=== PATIENT | male | born 1965 | race Caucasian/White ===

== ENCOUNTER 2023-09-19 07:39 | Emergency (ER) | payer OTHER, SELFPAY ==
[2023-09-19 07:43] VITALS: BP 152/108
--- NOTE | 2023-09-19 08:15 | ED.GENMED ---
History of Present Illness
General
Chief Complaint: Musculo-Skeletal Complaint
Source: patient
Exam Limitations: none
Time Seen by Provider: 09/19/23 07:52
Nursing documentation reviewed up to this point in time: agreed with
Travel History
Have you had any contact with someone who has COVID-19?: No
Do you have any symptoms of coronavirus? Fever > 100 degrees, chills, cough, shortness of breath, sore throat, loss of taste or smell, muscle aches, or headache?: No
History of Present Illness
History of Present Illness:
pt i a 58 y/o M with h/o hnt
here with atraumatic pain to L heel x 2 days
says he started with the pain when he got out of bed 2 days ago but was able to walk on it throughout the day
yesterday the more he wlaked, the more pain he felt
today he doesn't want to put pressure on it
no swelling, fever, numbness/tingling, skin changes
pt has never had this before
no change to footwear.
took motrin yesterday without relief
Past History
Past History
ED Past Medical History: HTN, Hypercholesterolemia and Other (diverticulitis)
ED Past Surgical History: Orthopedic (carpal tunnel, acl)
Social History
Tobacco: Non-smoker
Alcohol: Occasional
Drug: None
Personal:
Living: with family
Employment: Employed (facility director)
Family History
Family History: CAD
Review of Systems
Review of Systems
Allergies reviewed?: Yes
All Other Systems: Not applicable
Phy Exam
Physical Exam
Physical Exam:
GENERAL: Alert , in no apparent distress, comfortable at rest
HEAD: NCAT
CV: 2+ DP PULSES B/L
NEUROLOGICAL: Alert and oriented, no focal neuro deficits, , 5/5 strength, sensation intact, ambulation slight limp right leg
SKIN: Warm and dry, no rash, no redness
MUSCULOSKELETAL: Normal inspection of the left foot, although there may be a very subtle soft tissue swelling along the heel skin but there is no skin changes. He had no significant tenderness to palpation of the insertion point of the plantar
fascia but he does have pain in that spot when he ambulates. The Achilles is nontender, it is intact, calf is normal, ankle and foot have no bony tenderness
PSYCH: Normal and appropriate interaction.
Course
Orders/Labs/Results
Orders:
Orders
09/19/23 07:50
Heel, Left 2 View [CR Heel/os Calcis - Left 2 Vw*] Urgent
Comment:
Reason For Exam: left heel pain no injury started tuesday
Vital Signs
Initial and Last Documented VS:
Initial Vital Signs
Temp Pulse BP Pulse Ox
98.3 F 89 152/108 98
09/19/23 07:43 09/19/23 07:43 09/19/23 07:43 09/19/23 07:43
Last Documented Vital Signs
Temp Pulse Resp BP Pulse Ox
97.5 F 82 16 140/99 99
09/19/23 08:38 09/19/23 08:38 09/19/23 08:38 09/19/23 08:38 09/19/23 08:38
MDM/Problems Addressed
Differential Diagnosis Includes:
plantar fasciitis, heel spur
MDM/Problems Addressed:
58-year-old male with 2 days of left heel pain atraumatic, worsening in the morning first thing when he puts his foot down. He also has pain throughout the day with weightbearing. He has been using a cane that he had from a family member. He took
Motrin yesterday without relief. On exam the patient does not have significant tenderness and his symptoms painful dorsiflexion of the left foot but otherwise there are no exam findings. He was able to stand but does have discomfort. X-ray was
independently reviewed by me and showed calcaneus heel spurs promoting a diagnosis for plantar fasciitis. Recommended a plantar fascial splint and hard soled shoe, patient was given a postop shoe in the meantime. Referral to Ortho recommended if
symptoms do not improve with NSAIDs
*Critical Care Note
Total Time (30-74mins, 75-104mins- exclusive of procedures): Not Applicable
ED Attending Note
-
Portions of this chart may have been created with voice recognition software.� Occasional wrong word or��sound alike� substitutions may have occurred due to the inherent limitations of voice recognition software.
Discharge Plan
Departure
Patient Disposition: Home (Routine Discharge)
Date of Disposition: 09/19/23
Time of Disposition: 08:29
Patient with high blood pressure during this ER visit?: Yes
Condition: Fair
Discharge Problem:
Heel spur, Plantar fasciitis of left foot
Instructions: Heel Spurs (DC), BLOOD PRESSURE
Prescriptions:
New
naproxen 500 mg tablet
500 mg PO BID PRN (Reason: Pain) 5 Days Qty: 10 0RF
No Action
lisinopril-hydrochlorothiazide 20-12.5 mg tablet
1 tab PO DAILY
Referrals:
Abdon Sanchez DPM [Active] - Follow up in 5-7 days
Stand Alone Forms: Return to Work
Activity Restrictions/Additional Instructions:
Your symptoms are likely due to plantar fasciitis which you are at increased risk for because of bone spurs and calcifications in your heel bone which are degenerative changes due to arthritis. This is a condition that can take some time to heal.
You should try an Naprosyn 500 mg twice a day for 5 days with food
tylenol can also be used 3 times a day as needed
you can ice off and on and elevate your foot and try not to do excessive walking
when you do walk around, you should wear the hard soled shoe or boot. do not walk barefoot
you should buy a splint to wear at night
follow up with orthpedics as needed for continued symptoms
return for : redness, swelling, fever, inability to walk or any concerns
use the cane to help avoid full pressure on your heel for a few days.
Interventions
Interventions:
*Risk Screen - Suicide Last Done: 09/19/23 08:23
*General Assessment Last Done: 09/19/23 08:23
*Neglect/Abuse Screening Last Done: 09/19/23 08:23
ED- Fall Risk Assessment Last Done: 09/19/23 08:23
*ED COVID-19 Vaccine History Last Done: 09/19/23 07:47
*Nursing Disposition Last Done: 09/19/23 08:38
ED-Musculoskeletal Assessment Last Done: 09/19/23 08:23
Discharge Date and Time
Discharge Date/Time: 09/19/23 09:14
[2023-09-19 08:23] VITALS: BMI 27.9
[2023-09-19 08:38] VITALS: BP 140/99
== END 2023-09-19 09:14 | disposition home or self-care (01) ==
LOC: EMR 07:39
PROVIDERS: EMERGENCY PHYSICIAN Emergency Medicine; FAMILY PHYSICIAN Psychiatry & Neurology Neurology
DX: M77.32 Calcaneal spur, left foot (principal); M72.2 Plantar fascial fibromatosis; I10 Essential (primary) hypertension
CPT/HCPCS: 99283; 73650

== ENCOUNTER 2024-10-09 22:10 | Inpatient (IN) | payer OTHER, SELFPAY ==
[2024-10-09 16:07] VITALS: BP 128/90
[2024-10-09 16:35] LABS: Urine Albumin 1+ (Neg - Trace); Urine Bilirubin Negative (Negative); Urine Character Clear (Clear); Urine Color Yellow; Urine Glucose Negative (Negative); Urine Ketone Negative (Negative); Urine Leukocyte 1+ (Negative); Urine Nitrite Negative (Negative); Urine Occult Blood Negative (Negative); Urine Urobilinogen Negative (Neg - 1+); Urine pH 6.5 (5.0-9.0)
[2024-10-09 16:38] LABS: Hematocrit 48.2 % (39.0-52.0); Hemoglobin 15.8 g/dL (13.0-18.0); Mean Corp Hgb Conc. 32.8 g/dL (33.0-37.0); Mean Corpuscular Hgb 29.4 pg (27.0-31.0); Mean Corpuscular Volume 89.8 fL (80.0-94.0); Mean Platelet Volume 10.8 fL (7.4-10.4); Platelet Count 166 10^3/uL (130-400); Red Blood Cell Count 5.37 10^6/uL (4.70-6.10); Red Cell Dist. Width 13.3 % (11.5-14.5); White Blood Cell Count 9.2 10^3/uL (4.8-10.8)
[2024-10-09 16:45] LABS: ALT (SGPT) 28 U/L (0-50); AST (SGOT) 23 U/L (17-59); Alkaline Phosphatase 84 U/L (38-126); Blood Urea Nitrogen 17 mg/dl (9-20); Calcium 10.1 mg/dl (8.4-10.2); Carbon Dioxide 29 mmol/L (22-30); Chloride 100 mmol/L (98-107); Glucose 98 mg/dl (70-99); Lipase 54 U/L (23-300); Potassium 5.2 mmol/L (3.5-5.1); Sodium 140 mmol/L (135-145); Total Bilirubin 1.1 mg/dl (0.2-1.3); Total Protein 8.2 g/dl (6.3-8.2); eGFR > 60.00
[2024-10-09 16:51] LABS: Urine Bacteria Few (Negative); Urine Red Blood Cell 0-2 /HPF (0-2); Urine White Cell 0-2 /HPF (0-5)
[2024-10-09 16:57] LABS: % Basophils 0.5 % (0-2); % Eosinophils 1.1 % (0-6); % Immature Granulocytes 0.4 % (0-0.5); % Lymphocytes 23.2 % (20.5-51.1); % Monocytes 6.6 % (1.7-9.3); % Neutrophils 68.2 % (42.2-75.2); Absolute Basophils 0.1 10^3/uL (0-0.2); Absolute Eosinophils 0.1 10^3/uL (0-0.7); Absolute Lymphocytes 2.1 10^3/uL (1.2-3.4); Absolute Monocytes 0.6 10^3/uL (0.1-0.6); Absolute Neutrophils 6.3 10^3/uL (1.4-6.5); Nucleated Red Blood Cells % 0 % (-)
[2024-10-09 17:13] VITALS: BMI 29.0
--- NOTE | 2024-10-09 17:25 | ED.GENMED ---
History of Present Illness
General
Chief Complaint: Abdominal Pain
Source: patient
Exam Limitations: none
Time Seen by Provider: 10/09/24 16:51
Nursing documentation reviewed up to this point in time: agreed with
History of Present Illness
History of Present Illness:
Patient sent to ED by PCP for evaluation of lower abd. pain. Pain started last night. Denies n/v/d. Denies fever/chills. History of diverticulitis but states this feesl different.
Past History
Past History
ED Past Medical History: HTN, Hypercholesterolemia and Other (diverticulitis)
ED Past Surgical History: Orthopedic (carpal tunnel, acl)
Social History
Tobacco: Non-smoker
Alcohol: Occasional
Drug: None
Personal:
Living: with family
Employment: Employed (facility director)
Family History
Family History: CAD
Review of Systems
Review of Systems
All Other Systems: ROS reviewed and negative except as documented in HPI and ROS
Constitutional: Reports no symptoms
EENT: Reports no symptoms
Respiratory: Reports no symptoms
Cardiac: Reports no symptoms
ABD/GI: Reports abdominal pain (bilateral lower abd. pain)
: Reports no symptoms
Musculoskeletal: Reports no symptoms
Skin: Reports no symptoms
Neurological: Reports no symptoms
Psychiatric: Reports no symptoms
Phy Exam
General Physical Exam
General Presentation: moderate distress
General age: appears stated age
General Skin: warm and dry
General Habitus: normal
General Mental: alert
Cardiovascular Exam
Cardiovascular Exam: regular rate/rhythm and no edema
Pulmonary Exam
Pulmonary Exam: lungs clear and no respiratory distress
Gastrointestinal Exam
Gastrointestinal Exam: normal bowel sounds, soft, no organomegaly, non distended and no cva tenderness
Palpation: left upper quadrant: No tenderness, left lower quadrant: Moderate tenderness, right upper quadrant: No tenderness and right lower quadrant: Moderate tenderness
Musculoskeletal Exam
Musculoskeletal Exam: full ROM and neuro vasc intact
Skin Exam
Skin Exam: normal color, warm/dry and no rash
Psychiatric Exam
Psychiatric Exam: normal mood/affect
Course
Orders/Labs/Results
Orders:
Orders
10/09/24 16:22
Complete Blood Count/With Diff Urgent
Comprehensive Metabolic Panel Urgent
Lipase Urgent
Urinalysis Reflex To Culture Urgent
Date Specimen was Collected: 10/09/24
Time Specimen was Collected: 16:11
Urine Microscopic Reflex Cult Urgent
Urine Culture Urgent
[place] Source: U
Specimen Description:
Date Specimen was Collected: 10/09/24
Time Specimen was Collected: 16:11
10/09/24 17:20
0.9% Sodium Chloride 1000 ml [Nss] 1,000 ml IV BOLUS
HYDROmorphone [Dilaudid] 0.5 mg IV NOW STA
Ondansetron Injectable [Zofran] 4 mg IV NOW STA
10/09/24 17:21
CT Abd/pel W Iv And Oral Contr Urgent
Comment:
Reason For Exam: lower abd. pain
Iohexol [Omnipaque] See Protocol PO NOW STA
10/09/24 21:00
0.9% Sodium Chloride 1000 ml [Nss] 1,000 ml IV 125 mls/hr
HYDROmorphone [Dilaudid] 0.5 mg IV NOW STA
Ondansetron Injectable [Zofran] 4 mg IV NOW STA
Piperacillin/Tazo 3.375 Gram [Zosyn] 3.375 gram in 50 ml IV NOW
10/09/24 21:55
Admit/Transfer Patient As Directed
Co-Sign Provider:
Level of Care: Inpatient admission
Assign to:: Medical/Surgical
Physician / Group: hospitalist
Diagnosis: Ileitis
Reason for Hospitalization: Ileitis
Expected length of stay greater than two midnights?: Yes
ELOS- Estimated Length of Stay in days: 2
I certify the patient meets the requirements for IP care: Yes
Code Status As Directed
Resuscitation Status: Full Code
PRN Pain Medication Management As Directed
May give lesser potent ordered pain med per pt: Yes
preference::
Protocol:: Medication orders for pain may be administered in a
manner that supports deferring to patient preference
when the pt is:
- Requesting an ordered lesser potent pain medication.
Least to most potent pain medications are defined
as: acetaminophen < NSAID < tramadol < opioids
(morphine, oxycodone, hydromorphone).
- Requesting a lesser dose of the same medication IF
ORDERED.
- Requesting a less intrusive route of administration
if both routes are prescribed by the provider (PO <
IV).
10/09/24 22:00
Flush (0.9% Sodium Chloride) [Flush (Nss)] See Dose Instructions IV PER PROTOCOL
Abnormal Lab Results
10/09/24
16:22
MCHC 32.8 L g/dL
(33.0-37.0)
MPV 10.8 H fL
(7.4-10.4)
Potassium 5.2 H mmol/L
(3.5-5.1)
Leukocyte Esterase Rfl 1+ A
(Negative)
Urine Bacteria (Reflex) Few A
(Negative)
Urine Albumin (Reflex) 1+ A
(Neg - Trace)
10/09/24 16:22
10/09/24 16:22
Vital Signs
Initial and Last Documented VS:
Initial Vital Signs
Temp Pulse Resp BP Pulse Ox
98.8 F 87 16 128/90 99
10/09/24 16:07 10/09/24 16:07 10/09/24 16:07 10/09/24 16:07 10/09/24 16:07
Last Documented Vital Signs
Temp Pulse Resp BP Pulse Ox
98.8 F 69 10 132/87 100
10/09/24 16:07 10/09/24 18:45 10/09/24 18:45 10/09/24 19:00 10/09/24 17:45
*Radiology
Radiology exam reviewed: radiology read reviewed
*Pulse Oximetry
Patient hypoxic: no
*Critical Care Note
Total Time (30-74mins, 75-104mins- exclusive of procedures): Not Applicable
Update Note
Update Note:
Patient to ED with complaint of worsening lower abd. pain. Ct tonight reveals ileitis. Prior history of ileitis in 2022. He remains afebrile. No v/d tonight in ED. Discussed findings with him. He does not feel he can go home due to pain. WIll
place on zosyn and admit to hospitalist service.
ED Attending Note
-
Portions of this chart may have been created with voice recognition software.� Occasional wrong word or��sound alike� substitutions may have occurred due to the inherent limitations of voice recognition software.
Discharge Plan
Departure
Patient Disposition: Admit
Date of Disposition: 10/09/24
Time of Disposition: 21:08
Presentation/result/management discussed w/ accepting MD/DO: Hospitalist
Condition: Fair
Covid-19: Not Applicable
Discharge Problem:
Ileitis
Interventions
Interventions:
*Risk Screen - Suicide Last Done: 10/09/24 16:07
*General Assessment Last Done: 10/09/24 16:07
*Neglect/Abuse Screening Last Done: 10/09/24 16:07
*ED- Fall Risk Assessment Last Done: 10/09/24 17:13
*ED COVID-19 Vaccine History Last Done: 10/09/24 16:07
[facility]ou[facility] Assessment Last Done: 10/09/24 17:13
[2024-10-09 17:29] VITALS: BP 130/96
[2024-10-09] MEDS: OMNIPAQUE 50 ML PO (17:46)
[2024-10-09] MEDS: DILAUDID 0.5 MG IV ×2 (17:47→21:19)
[2024-10-09] MEDS: NSS 1000 IV ×2 (17:47→21:18)
[2024-10-09] MEDS: ZOFRAN 4 MG IV ×2 (17:47→21:19)
[2024-10-09 18:00] VITALS: BP 130/95
[2024-10-09 19:00] VITALS: BP 132/87
[2024-10-09 20:00] VITALS: BP 120/85
[2024-10-09] MEDS: ZOSYN 50 IV (21:19)
--- NOTE | 2024-10-09 21:48 | HPS.HSE ---
Family Physician
-
Family Physician: Flip Thomas
Chief Complaint
-
Abdominal pain
History of Present Illness
This is a 59-year-old male with past medical history of hypertension and hyperlipidemia who presents to the emergency department with 1 day history of abdominal pain.
Patient reports abrupt onset of abdominal pain localized to the bilateral lower quadrant and upper pelvis. He reports that the pain is nonradiating. Not improved with movement or positional changes. He denies any urinary symptoms. Denies any
nausea or vomiting. He has not been having any diarrhea. He reports no sick contacts or recent travels.
Patient was seen [facility] 2 years ago for similar episode of pain and at time was found to have pneumonitis which was thought to be infectious but inflammatory cannot be ruled out. He did had a follow-up with GI but told me that he was
never diagnosed with inflammatory bowel disease.
In the emergency department he was afebrile, blood pressure was 132/87 pulse 69 respiratory rate 10 and was satting 100% on room air. His CBC was unremarkable stop electrolytes with stable with a potassium of 5.2 otherwise unremarkable.
BUN/creatinine were normal. He has a CT abdomen pelvis with IV contrast revealing extensive wall thickening stranding along the terminal ileum extending slightly into the cecum consistent with terminal ileitis/ileocecitis.
Medical History
Past Medical History
Past Medical History: Reports HTN, Hypercholesterolemia and Other (diverticulitis)
Past Surgical History: Reports Other (No major recent surgery)
Social History
Tobacco: Non-smoker
Alcohol: Occasional
Drug: None
Personal:
Living: With Family
Employment: Employed
Family History
Family History: Not pertinent and Other (Father had Alzheimer's dementia. Mother had breast cancer. Brother had colon cancer.)
Allergies / Home Medications
Allergies reflects when Allergies were last updated in marker[employer]to.
Home Medications with original date entered in marker.to
Allergy/Medication List:
Allergies
Allergy/AdvReac Type Severity Reaction Status Date / Time
sulfamethoxazole Allergy Hives Verified 10/09/24 16:10
[From Bactrim]
trimethoprim [From Bactrim] Allergy Hives Verified 10/09/24 16:10
Home Medications
lisinopril 20 mg-hydrochlorothiazide 12.5 mg tablet 1 tab PO DAILY Blood Pressure 04/17/23
ibuprofen 200 mg tablet 400 mg PO Q8HPRN PRN mild pain 10/09/24
Review of Systems
-
History Source: Patient
Constitutional: Reports No Symptoms
EENT: Reports No Symptoms
Respiratory: Reports No Symptoms
Cardiac: Reports No Symptoms
Abdomen/GI: Reports Abdominal Pain
: Reports No Symptoms
Musculoskeletal: Reports No Symptoms
Skin: Reports No Symptoms
Neurological: Reports No Symptoms
Endocrine: Reports No Symptoms
Hematologic/Lymphatic: Reports No Symptoms
Psych: Reports No Symptoms
Physical Exam
Vital Signs
Vital Signs
Temp Pulse Resp BP Pulse Ox
98.8 F 69 10 132/87 100
10/09/24 16:07 10/09/24 18:45 10/09/24 18:45 10/09/24 19:00 10/09/24 17:45
Physical Exam
General: Well Developed, Well Nourished, Comfortable and Conversant
HEENT: NormoCephalic, Anicteric, Moist mucous membranes and Atraumatic
Respiratory: Clear
Cardiac: S1/S2 and Regular Rhythm
Breast: Deferred by me
GI: Soft, Non Distended, Normal Bowel Sounds and Tender
Rectal: Deferred by Provider
Genito-urinary: Deferred by me
Musculoskeletal: No Clubbing, No Cyanosis and No Edema
Skin: Warm
Neuro: AO x 3 and Nonfocal/grossly intact
Hematologic/Lymphatic: No Lymphadenopathy
Psych: Calm
Laboratory Results
-
10/09/24 16:22
10/09/24 16:22
Laboratory Results
Total Bilirubin 1.1 mg/dl (0.2-1.3) 10/09/24 16:22
AST 23 U/L (17-59) 10/09/24 16:22
ALT 28 U/L (0-50) 10/09/24 16:22
Alkaline Phosphatase 84 U/L (38-126) 10/09/24 16:22
Lipase 54 U/L (23-300) 10/09/24 16:22
Data Reviewed
-
CT Scan: Report Reviewed by me
Lab Data: Labs Reviewed by me
Old Records: Reviewed
Impression/Plan
-
IMPRESSION:
59-year-old with a history of recurrent episodes of abdominal pain and last episode 2022 diagnosed with terminal ileitis at that time, presents to the emergency department today with 1 day history of abdominal pain without nausea vomiting and
without diarrhea. CT scan shows terminal ileitis with ileocecal axis. CBC is unremarkable stop electrolytes are stable. Patient is hemodynamically stable and afebrile. Suspect the inflammatory changes are likely secondary to inflammatory disease
but cannot rule out on acute infectious ileitis at this time.
PLAN:
Ileitis
- admit to med/surg
- clear liquid diet
- no indication for stool cultures
- check esr and fecal calprotectin
- continue abx with IV unasyn for now
- continue hctz/lisinopril
- GI consultation
DVT PPX - lovenox sq
Code status - Lovenox sq
[2024-10-09 23:00] VITALS: BP 111/75
[2024-10-09 23:51] VITALS: BMI 28.9
[2024-10-10] MEDS: DILAUDID 0.5 MG IV ×5 (00:50→21:22)
[2024-10-10] MEDS: UNASYN IV ×4 (04:50→21:18)
[2024-10-10] MEDS: NSS 1000 IV ×2 (05:00→13:35)
--- NOTE | 2024-10-10 06:51 | CON.GI ---
Addendum entered and electronically signed by Xenia Kenyon MD 10/10/24 18:27:
I saw and examined the patient.
The SAND SYSTEM OPERATOR's note was reviewed and I agree with the note.
--Abdominal pain - CT abd - terminal ileitis/ileocecitis. Similar episode back in 2022 (significant NSAIDs use at that time) -MRE done at that time was normal. Last colonoscopy in 2021 at outside facility. No records available
- hx of diverticulitis.
plan
Possible differential-Crohn's disease versus NSAIDs induced (patient currently not taking NSAIDs on regular basis ) versus infectious (less likely with recurrent nature) etc.
Clear liquid diet
Stool studies for infection
Continue antibiotics started by medical team for now
Will check stool calprotectin
Discussed about colonoscopy / biopsy during this admission if pain persists. Patient not sure about tolerating bowel prep . Will reevaluate tomorrow how he tolerates clear liquid diet
Original Note:
Consultation
-
Date/Time Consultation Requested: 10/10/24 0030
Date/Time Consultation Performed: 10/10/24 1030
Requesting Provider: Wilberto Hoffman MD
Performing Provider: LORETTA Rizvi, Xenia Kenyon MD
Reason for Consultation: ileitis
Medical History
Chief Complaint / HPI
Chief Complaint: abdominal pain
History of Present Illness:
Pt is a 59yo with a past medical history significant for hypertension, hyperlipidemia, diverticulitis with admission in 2022 with abdominal pain noted after dental procedure with Motrin use. At that time Ct noted terminal ileitis. Etiology
related to infectious, vs inflammatory vs med induced with hx NSAID use. Stool cx including Yersinia was negative. ESR 11, CRP 65.7, fecal mary 71 Pt had follow up in GI office with MRE completed with normalization of findings and further work up
held. . Prior colonoscopy completed around 2021 was requested but not received and reported as negative. Colonoscopy was held with improvement. Pt now returns with abdominal pain with abdominal pain and CT concerned for terminal ileal
thickening.
In review with patient he admits to some intermittent abdominal pain. He has had left sided pain with diverticuliitis. With 2022 admission he had right sided pain. This episode began with mid lower pain but now right sided pain at this
time. He also admits to periodic pain on right side that he has left work for in past along with bloating. At this time he admits to continued pain with bloating and minimal oral intakes. He admits to GERD but denies vomiting, diarrhea,
constipation or rectal bleeding. Pt admits to taking 2 Motrin last week but no increased amount of noted in 2022. Denies visual problems or joint pain but admits to rash in right arm that flares with pain.
Past Medical History
Past Medical History: HTN, Hypercholesterolemia and Other (diverticulitis, )
Past Surgical History: Orthopedic (carpel tunnel surgery, ACL knee )
Social History
Tobacco: Non-Smoker
Alcohol: None
Drug: None
Personal:
Living: With Family
Employment: Employed
Family History
Family History: Other (no family hx IBD or GI issues )
Allergies / Home Medications
Allergy/AdvReac Type Severity Reaction Status Date / Time
sulfamethoxazole Allergy Hives Verified 10/09/24 16:10
[From Bactrim]
trimethoprim [From Bactrim] Allergy Hives Verified 10/09/24 16:10
�Medication �Instructions �Recorded
lisinopril 20 1 tab PO DAILY Blood Pressure 04/17/23
mg-hydrochlorothiazide 12.5 mg
tablet
ibuprofen 200 mg tablet 400 mg PO Q8HPRN PRN mild pain 10/09/24
Review of Systems
-
History Source: Patient
Constitutional: Reports Weight Loss (few lbs over time )
EENT: Reports No Symptoms
Respiratory: Reports No Symptoms
Cardiac: Reports No Symptoms
Abdomen/GI: Reports Abdominal Pain and Other (increased GERD and bloating )
: Reports No Symptoms
Musculoskeletal: Reports No Symptoms
Skin: Reports Rash (right arm rash flares with pain)
Neurological: Reports No Symptoms
Endocrine: Reports No Symptoms
Hematologic/Lymphatic: Reports No Symptoms
Vital Signs
Temp Pulse Resp BP Pulse Ox
98.2 F 67 20 111/75 97
10/09/24 23:00 10/09/24 23:00 10/09/24 23:00 10/09/24 23:00 10/09/24 23:00
Physical Exam
Exam
General: Well Developed, Well Nourished and No Apparent Distress
HEENT: Normocephalic and Anicteric
Respiratory: Clear
Cardiac: Regular Rhythm
GI: Soft, Tender (right side and mid abdomen ) and Distended (mild )
Skin: Warm and Dry
Neuro: Awake, Alert and AO x 3
Psych: Calm
Results
WBC 9.2 10^3/uL (4.8-10.8) 10/09/24 16:22
Hgb 15.8 g/dL (13.0-18.0) 10/09/24 16:22
Hct 48.2 % (39.0-52.0) 10/09/24 16:22
MCV 89.8 fL (80.0-94.0) 10/09/24 16:22
Plt Count 166 10^3/uL (130-400) 10/09/24 16:22
Absolute Neuts (auto) 6.3 10^3/uL (1.4-6.5) 10/09/24 16:22
Sodium 140 mmol/L (135-145) 10/09/24 16:22
Potassium 5.2 mmol/L (3.5-5.1) H 10/09/24 16:22
Chloride 100 mmol/L (98-107) 10/09/24 16:22
Carbon Dioxide 29 mmol/L (22-30) 10/09/24 16:22
BUN 17 mg/dl (9-20) 10/09/24 16:22
Creatinine 1.1 mg/dL (0.7-1.3) 10/09/24 16:22
Calcium 10.1 mg/dl (8.4-10.2) 10/09/24 16:22
Total Bilirubin 1.1 mg/dl (0.2-1.3) 10/09/24 16:22
AST 23 U/L (17-59) 10/09/24 16:22
ALT 28 U/L (0-50) 10/09/24 16:22
Alkaline Phosphatase 84 U/L (38-126) 10/09/24 16:22
Lipase 54 U/L (23-300) 10/09/24 16:22
Diagnostic Image Results:
10/09/24 CT Abd/pel W Iv And Oral Contr
There is extensive wall thickening stranding along the terminal ileum extending slightly into the cecum consistent with terminal ileitis/ileocecitis. There is likely related to known Crohn's disease.
The liver appears borderline diffusely hypoattenuating suggestive of an element of fatty infiltration, unchanged from prior.
05/2023 MR Enterography
IMPRESSION: By today's MR enterography, the terminal ileum appears within normal limits. Interval resolution of changes of terminal ileitis seen on CT examination of April 17, 2023.
By MRI, no significant abnormal bowel wall thickening or enhancement. No findings to suggest active enteritis or colitis.
04/17/23 CT A/P w/IV contrast: Findings consistent with terminal ileitis, likely of infectious/inflammatory etiology. Normal appendix.
09/2022 CT Abd/pel W Iv And Oral Contr
Sigmoid diverticulosis, limited without oral contrast opacification of large bowel. No intestinal obstruction or free air.
Unremarkable appendix.
Borderline diffuse fatty liver.
06/2021 CT Abd/pel W Iv And Oral Contr
1. Findings suggestive of mild sigmoid diverticulitis.
2. No evidence of extraluminal air or abscess formation.
Prior GI Procedures:
EGD: none on chart
Colonoscopy: Last colonoscopy last year per pt, no pertinent findings, hx poylps on prior (report not available to me)
Assessment / Plan
-
Pt is a 59yo with a past medical history significant for hypertension, hyperlipidemia, diverticulitis with admission in 2022 with abdominal pain noted after dental procedure with Motrin use. At that time Ct noted terminal ileitis. Etiology
related to infectious, vs inflammatory vs med induced with hx NSAID use. Stool cx including Yersinia was negative. ESR 11, CRP 65.7, fecal mary 71 Pt had follow up in GI office with MRE completed with normalization of findings. Prior colonoscopy
completed around 2021 was requested but not received and reported as negative. Colonoscopy was held with improvement. Pt now returns with abdominal pain with abdominal pain and CT concerned for terminal ileal thickening. In review with patient
he admits to some intermittent abdominal pain. He has had left sided pain with diverticuliitis. With 2022 admission he had right sided pain. This episode began with mid lower pain but now right sided pain at this time. He also admits to periodic
pain on right side that he has left work for in past along with bloating. At this time he admits to continued pain with bloating and minimal oral intakes. . Pt admits to taking 2 Motrin last week but no increased amount of noted in 2022. Denies
visual problems or joint pain but admits to rash in right arm that flares with pain.
-ileitis with some periodic pain
-hx admission 2022 with ileitis
-elevated inflammatory markers
-arm rash with flare with pain
other med problems:
-HTN
-hyperlipidemia
-diverticulitis
-fatty liver on prior imaging
PLAN:
Etiology of abdominal pain secondary to CT findings showing acute terminal ileitis inflammatory with chronic recurrent process vs infectious(though recurrent process) vs other
prior etiology possible NSAID related but minimal use prior to this admission
elevated CRP, await ESR and fecal mary
check stool studies including Yersina
cont abx
clear diet monitor diet tolerance -- currently minimal intakes
will need eventual colonoscopy likely 3-4 week office follow up and 6-8 week colonscopy -- has seen Dr. balbuena in past
OP follow up for fatty liver
-
-
Thank you for consultation and allowing me to participate in the patient's care. Please call the life insurance salesperson GI physician during the after hours with any questions or concerns.
[2024-10-10 08:00] VITALS: BP 135/82
[2024-10-10] MEDS: ORETIC 12.5 MG PO (08:26)
[2024-10-10] MEDS: ZESTRIL 20 MG PO (08:27)
[2024-10-10] MEDS: TYLENOL 650 MG PO (08:39)
[2024-10-10 08:47] LABS: Blood Urea Nitrogen 16 mg/dl (9-20); Calcium 8.7 mg/dl (8.4-10.2); Carbon Dioxide 27 mmol/L (22-30); Chloride 103 mmol/L (98-107); Estimated Creatinine Clearance 80 ml/min; Glucose 89 mg/dl (70-99); Potassium 4.4 mmol/L (3.5-5.1); Sodium 138 mmol/L (135-145); eGFR > 60.00
[2024-10-10 08:52] LABS: Hematocrit 41.4 % (39.0-52.0); Hemoglobin 13.7 g/dL (13.0-18.0); Mean Corp Hgb Conc. 33.1 g/dL (33.0-37.0); Mean Corpuscular Hgb 29.7 pg (27.0-31.0); Mean Corpuscular Volume 89.6 fL (80.0-94.0); Mean Platelet Volume 10.7 fL (7.4-10.4); Platelet Count 143 10^3/uL (130-400); Red Blood Cell Count 4.62 10^6/uL (4.70-6.10); Red Cell Dist. Width 13.2 % (11.5-14.5); White Blood Cell Count 6.9 10^3/uL (4.8-10.8)
--- NOTE | 2024-10-10 11:21 | W.PN.HOSP.TC ---
Today's Communication/Plan
-
See plan
Assessment / Plan
Assessment / Plan
Impression:
59-year-old with a history of recurrent episodes of abdominal pain and last episode 2022 diagnosed with terminal ileitis at that time, presents to the emergency department today with 1 day history of abdominal pain without nausea vomiting and
without diarrhea. CT scan shows terminal ileitis with ileocecal axis. CBC is unremarkable stop electrolytes are stable. Patient is hemodynamically stable and afebrile. Suspect the inflammatory changes are likely secondary to inflammatory disease
but cannot rule out on acute infectious ileitis at this time.
Terminal ileitis, recurrent episodes.
Fatty liver by imaging
Essential hypertension
Plan:
Terminal ileitis recurrent episode last [address]
There is extensive wall thickening stranding along the terminal ileum extending slightly into the cecum consistent with terminal ileitis/ileocecitis. There is likely related to known Crohn's disease.
The liver appears borderline diffusely hypoattenuating suggestive of an element of fatty infiltration, unchanged from prior.
Nontoxic-appearing
Afebrile hemodynamically stable with no evidence of systemic infection or sepsis.
Abdominal examination with mild tenderness mostly in lower quadrants.
Similar presentation in 2022 treated empirically with antibiotics.
Follow-up MRE with complete resolution and no evidence of chronic findings
Patient is to follow-up with colonoscopy in 2025
Differential diagnosis terminal ileitis, less likely infectious given presentation with absence of fever, normal white count, no diarrhea, no recent antibiotics or other exposure, versus inflammatory bowel disease with consideration of Crohn's
versus NSAID related.
At this point no clear evidence of IBD with very mildly elevated CRP, no reports of hematochezia or anemia.
Stool calprotectin pending.
Empiric antibiotics Unasyn
Clear liquid diet.
Continue to monitor clinical progression
Discussed with gastroenterology. Patient may required diagnostic colonoscopy while inpatient if no response to conservative management.
Essential hypertension.
Continue lisinopril
Hold HCTZ
Anticipated Discharge: 24 - 48 hours
Subjective/Interval History
-
Date of Service: October 10, 2024
Objective Data
-
Labs:
Laboratory Results
10/10/24
07:51
WBC 6.9
Hgb 13.7
Hct 41.4
Plt Count 143
Sodium 138
Potassium 4.4
Chloride 103
Carbon Dioxide 27
BUN 16
Creatinine 1.1
Glucose 89
Calcium 8.7
Vital Signs:
Vital Signs
Temp Pulse Resp BP Pulse Ox
98.2 F 69 16 135/82 98
10/10/24 08:00 10/10/24 08:27 10/10/24 08:00 10/10/24 08:27 10/10/24 08:00
I&O
10/09/24 10/10/24 10/11/24
06:59 06:59 06:59
Intake Total 240 / 240
Output Total
Balance 239 / 239
Physical Exam
-
General: Well Developed and No Apparent Distress
HEENT: Normocephalic, Atraumatic and Moist Mucous Membranes
Respiratory: Clear to Auscultation
Cardiac: Regular Rhythm and S1/S2; Negative Murmur, Rub or Gallop
GI: Soft, Nontender, Nondistended and Normal Bowel Sounds; Negative Organomegaly
Rectal: Deferred by Provider
Musculoskeletal: No Clubbing, No Cyanosis and No Edema
Skin: Negative Rash
Neuro: Nonfocal/Grossly Intact
[2024-10-10 12:03] LABS: Erythrocyte Sed Rate 7 mm/hour (0-20)
--- NOTE | 2024-10-10 15:19 | CM ---
Reviewed the chart notes and spoke with the patient at the bedside. The patient resides with his spouse in a two story home with eight steps to enter. The patient reports no DME/VN/SNF. The patient confirmed her pharmacy of choice is [facility] [address]. JOE continues to be available to patient/family and is monitoring medical plan for needs at discharge.
Plan: Discharge to home when medically stable. No needs anticipated at this time.
[2024-10-10 16:00] VITALS: BP 105/68
[2024-10-10] MEDS: LOVENOX 40 MG SC (17:15)
[2024-10-10 23:30] VITALS: BP 122/68
[2024-10-11] MEDS: NSS 1000 IV (00:38)
[2024-10-11] MEDS: UNASYN IV ×4 (03:49→22:07)
[2024-10-11 07:36] VITALS: BP 126/88
[2024-10-11] MEDS: ZESTRIL 20 MG PO (08:46)
--- NOTE | 2024-10-11 11:51 | W.PN.GI.CBS2 ---
Today's Communication / Plan
-
bowel prep today
colonoscopy tomorrow
Assessment / Plan
-
Pt is a 59yo with a past medical history significant for hypertension, hyperlipidemia, diverticulitis with admission in 2022 with abdominal pain noted after dental procedure with Motrin use. At that time Ct noted terminal ileitis. Etiology
related to infectious, vs inflammatory vs med induced with hx NSAID use. Stool cx including Yersinia was negative. ESR 11, CRP 65.7, fecal mary 71 Pt had follow up in GI office with MRE completed with normalization of findings. Prior colonoscopy
completed around 2021 was requested but not received and reported as negative. Colonoscopy was held with improvement. Pt now returns with abdominal pain with abdominal pain and CT concerned for terminal ileal thickening. In review with patient
he admits to some intermittent abdominal pain. He has had left sided pain with diverticuliitis. With 2022 admission he had right sided pain. This episode began with mid lower pain but now right sided pain at this time. He also admits to periodic
pain on right side that he has left work for in past along with bloating. At this time he admits to continued pain with bloating and minimal oral intakes. . Pt admits to taking 2 Motrin last week but no increased amount of noted in 2022. Denies
visual problems or joint pain but admits to rash in right arm that flares with pain.
-ileitis with some periodic pain
-hx admission 2022 with ileitis
-elevated inflammatory markers
-arm rash with flare with pain
other med problems:
-HTN
-hyperlipidemia
-diverticulitis
-fatty liver on prior imaging
PLAN:
Etiology of abdominal pain secondary to CT findings showing acute terminal ileitis inflammatory with chronic recurrent process vs infectious(though recurrent process) vs other
prior etiology possible NSAID related but minimal use prior to this admission
check fecal mary
check stool studies
cont abx
clear liquid diet
discussed benefit vs risks of colonoscopy . patient is agreeable . bowel prep today . colonoscopy tomorrow am
OP follow up for fatty liver
Total Time Spent with Patient (in minutes): 35
Subjective
Subjective
Date of Service: October 11, 2024
abdominal pain is better. Bloating sensation with CLD.
Objective
Data Reviewed
Laboratory Data:
Laboratory Results
10/10/24 07:51
10/10/24 07:51
Laboratory Results
Total Bilirubin 1.1 mg/dl (0.2-1.3) 10/09/24 16:22
AST 23 U/L (17-59) 10/09/24 16:22
ALT 28 U/L (0-50) 10/09/24 16:22
Alkaline Phosphatase 84 U/L (38-126) 10/09/24 16:22
Lipase 54 U/L (23-300) 10/09/24 16:22
Vital Signs and I&O:
Vital Signs
Temp Pulse Resp BP Pulse Ox
98.7 F 77 18 126/88 99
10/11/24 07:36 10/11/24 07:36 10/11/24 07:36 10/11/24 07:36 10/11/24 07:36
I&O
10/10/24 10/11/24 10/12/24
06:59 06:59 06:59
Intake Total 240 / 240 3860 / 3860
Output Total
Balance 239 / 239 3860 / 3860
Physical Exam
Physical Exam
GI: Soft, Non Distended and Tender (RLQ tenderness without guarding or rigidity )
--- NOTE | 2024-10-11 13:02 | W.PN.HOSP.TC ---
Today's Communication/Plan
-
GI recommendation regarding colonoscopy during this admit
Assessment / Plan
Assessment / Plan
Impression:
59-year-old with a history of recurrent episodes of abdominal pain and last episode 2022 diagnosed with terminal ileitis at that time, presents to the emergency department today with 1 day history of abdominal pain without nausea vomiting and
without diarrhea. CT scan shows terminal ileitis with ileocecal axis. CBC is unremarkable stop electrolytes are stable. Patient is hemodynamically stable and afebrile. Suspect the inflammatory changes are likely secondary to inflammatory disease
but cannot rule out on acute infectious ileitis at this time.
Terminal ileitis, recurrent episodes.
Fatty liver by imaging
Essential hypertension
Assessment/plan:
Terminal ileitis recurrent episode last [address]
There is extensive wall thickening stranding along the terminal ileum extending slightly into the cecum consistent with terminal ileitis/ileocecitis. There is likely related to known Crohn's disease.
The liver appears borderline diffusely hypoattenuating suggestive of an element of fatty infiltration, unchanged from prior.
Nontoxic-appearing
Afebrile hemodynamically stable with no evidence of systemic infection or sepsis.
Abdominal examination with mild tenderness mostly in lower quadrants.
Similar presentation in 2022 treated empirically with antibiotics.
Follow-up MRE with complete resolution and no evidence of chronic findings
Patient is to follow-up with colonoscopy in 2025
Differential diagnosis terminal ileitis, less likely infectious given presentation with absence of fever, normal white count, no diarrhea, no recent antibiotics or other exposure, versus inflammatory bowel disease with consideration of Crohn's
versus NSAID related.
At this point no clear evidence of IBD with very mildly elevated CRP, no reports of hematochezia or anemia.
Stool calprotectin pending.
Empiric antibiotics Unasyn
Clear liquid diet.
10/11
Patient may required diagnostic colonoscopy while inpatient if no response to conservative management.
Essential hypertension.
Continue lisinopril
Hold HCTZ for now
CODE STATUS: Full code
DVT prophylaxis: Lovenox
Diet: Clear liquid diet
Total time spent on today's encounter was 55 minutes which included time spent in counseling the patient/family regarding diagnosis and treatment plan as listed above, goals of care, and symptom management. Case was discussed with nursing staff,
specialists, and care coordinators/case management. All labs and imaging personally reviewed by me. Remainder the time spent in detailed review of previous records, lab data, imaging, and other medical provider documentation.
Anticipated Discharge: > 48 hours
Subjective/Interval History
-
Date of Service: October 11, 2024
Patient seen and examined at bedside.
No chest pain or shortness of breath.
Still with diarrhea, tolerating clear liquid diet.
Objective Data
-
Vital Signs:
Vital Signs
Temp Pulse Resp BP Pulse Ox
98.7 F 77 18 126/88 99
10/11/24 07:36 10/11/24 07:36 10/11/24 07:36 10/11/24 07:36 10/11/24 07:36
I&O
10/10/24 10/11/24 10/12/24
06:59 06:59 06:59
Intake Total 240 / 240 3860 / 3860
Output Total
Balance 239 / 239 3860 / 3860
Physical Exam
-
General: Well Developed and No Apparent Distress
HEENT: Normocephalic, Atraumatic and Moist Mucous Membranes
Respiratory: Clear to Auscultation
Cardiac: Regular Rhythm and S1/S2; Negative Murmur, Rub or Gallop
GI: Soft, Nondistended, Normal Bowel Sounds and Tender; Negative Organomegaly
Rectal: Deferred by Provider
Musculoskeletal: No Clubbing, No Cyanosis and No Edema
Skin: Negative Rash
Neuro: Nonfocal/Grossly Intact
Data Reviewed
-
Diagnostic Radiology: Image personally visualized and interpreted and Report Reviewed by me
CT Scan: Image personally visualized and interpreted and Report Reviewed by me
Ultrasound: Image personally visualized and interpreted and Report Reviewed by me
MRI: Image personally visualized and interpreted and Report Reviewed by me
Medical Tests (Nuc Med, Echo etc): Image personally visualized and interpreted and Report Reviewed by me
Labs: Labs Reviewed by me
Old Records: Reviewed
--- NOTE | 2024-10-11 15:19 | CM ---
Reviewed the chart notes and spoke with the pateint. Patient to start prep tonight for colonoscopy. CM continues to be available to patient/family and is monitoring medical plan for needs at discharge.
Plan: Discharge to home when medically stable. No needs anticipated at this time.
[2024-10-11 15:51] VITALS: BP 129/87
[2024-10-11] MEDS: LOVENOX 40 MG SC (17:33)
[2024-10-11] MEDS: NULYTELY SOLUTION 2 LITERS PO (17:33)
[2024-10-11] MEDS: ROXICODONE 5 MG PO (22:09)
[2024-10-11] MEDS: TYLENOL 650 MG PO (22:09)
[2024-10-11 23:42] VITALS: BP 139/93
[2024-10-12] MEDS: UNASYN IV ×2 (03:51→10:55)
[2024-10-12] MEDS: NULYTELY SOLUTION 2 LITERS PO (03:52)
[2024-10-12 08:04] VITALS: BP 138/87
[2024-10-12] MEDS: ZESTRIL 20 MG PO (08:05)
[2024-10-12 09:25] VITALS: BP 102/74; BP_SYST 14
[2024-10-12 09:30] VITALS: BP 108/80
[2024-10-12 09:40] VITALS: BP 99/84; BP_SYST 14
[2024-10-12 09:45] VITALS: BP 99/84
--- NOTE | 2024-10-12 12:29 | W.PN.HOSP.TC ---
Today's Communication/Plan
-
Discharge home today if tolerates diet
Assessment / Plan
Assessment / Plan
Impression:
59-year-old with a history of recurrent episodes of abdominal pain and last episode 2022 diagnosed with terminal ileitis at that time, presents to the emergency department today with 1 day history of abdominal pain without nausea vomiting and
without diarrhea. CT scan shows terminal ileitis with ileocecal axis. CBC is unremarkable stop electrolytes are stable. Patient is hemodynamically stable and afebrile. Suspect the inflammatory changes are likely secondary to inflammatory disease
but cannot rule out on acute infectious ileitis at this time.
Terminal ileitis, recurrent episodes.
Fatty liver by imaging
Essential hypertension
Colonoscopy shows:
- The examined portion of the ileum was normal with intact villi and healthy appearing ileal mucosa without any endoscopic signs of inflammation. Biopsied.
Multiple polyps resected, moderate diverticulosis and nonbleeding internal hemorrhoids otherwise normal exam
Plan to discharge if tolerates diet.
Assessment/plan:
Terminal ileitis recurrent episode last [address] scan
There is extensive wall thickening stranding along the terminal ileum extending slightly into the cecum consistent with terminal ileitis/ileocecitis. There is likely related to known Crohn's disease.
The liver appears borderline diffusely hypoattenuating suggestive of an element of fatty infiltration, unchanged from prior.
Nontoxic-appearing
Afebrile hemodynamically stable with no evidence of systemic infection or sepsis.
Abdominal examination with mild tenderness mostly in lower quadrants.
Similar presentation in 2022 treated empirically with antibiotics.
Follow-up MRE with complete resolution and no evidence of chronic findings
Patient is to follow-up with colonoscopy in 2025
Differential diagnosis terminal ileitis, less likely infectious given presentation with absence of fever, normal white count, no diarrhea, no recent antibiotics or other exposure, versus inflammatory bowel disease with consideration of Crohn's
versus NSAID related.
At this point no clear evidence of IBD with very mildly elevated CRP, no reports of hematochezia or anemia.
Stool calprotectin pending.
Empiric antibiotics Unasyn
Clear liquid diet.
10/11
Patient may required diagnostic colonoscopy while inpatient if no response to conservative management.
10/12
Colonoscopy shows:
- The examined portion of the ileum was normal with intact villi and healthy appearing ileal mucosa without any endoscopic signs of inflammation. Biopsied.
Multiple polyps resected, moderate diverticulosis and nonbleeding internal hemorrhoids otherwise normal exam
Plan to discharge if tolerates diet.
Essential hypertension.
Continue lisinopril
Hold HCTZ for now
CODE STATUS: Full code
DVT prophylaxis: Lovenox
Diet: Clear liquid diet
Total time spent on today's encounter was 55 minutes which included time spent in counseling the patient/family regarding diagnosis and treatment plan as listed above, goals of care, and symptom management. Case was discussed with nursing staff,
specialists, and care coordinators/case management. All labs and imaging personally reviewed by me. Remainder the time spent in detailed review of previous records, lab data, imaging, and other medical provider documentation.
Anticipated Discharge: Today
Subjective/Interval History
-
Date of Service: October 12, 2024
Patient seen and examined at bedside, just came from colonoscopy.
at bedside.
Discussed plan result of colonoscopy.
Will advance diet and if tolerated to be discharged home.
Otherwise patient denies any chest pain or shortness of breath, no abdominal pain, no nausea, no vomiting, no diarrhea or constipation.
Objective Data
-
Vital Signs:
Vital Signs
Temp Pulse Resp BP Pulse Ox
97.9 F 63 8 99/84 98
10/12/24 09:40 10/12/24 09:45 10/12/24 09:45 10/12/24 09:45 10/12/24 09:45
I&O
10/11/24 10/12/24 10/13/24
06:59 06:59 06:59
Intake Total 3860 / 3860 2280 / 2280
Balance 0 / 3859
Physical Exam
-
General: Well Developed and No Apparent Distress
HEENT: Normocephalic, Atraumatic and Moist Mucous Membranes
Respiratory: Clear to Auscultation
Cardiac: Regular Rhythm and S1/S2; Negative Murmur, Rub or Gallop
GI: Soft, Nondistended, Normal Bowel Sounds and Tender; Negative Organomegaly
Rectal: Deferred by Provider
Musculoskeletal: No Clubbing, No Cyanosis and No Edema
Skin: Negative Rash
Neuro: Nonfocal/Grossly Intact
Data Reviewed
-
Diagnostic Radiology: Image personally visualized and interpreted and Report Reviewed by me
CT Scan: Image personally visualized and interpreted and Report Reviewed by me
Ultrasound: Image personally visualized and interpreted and Report Reviewed by me
MRI: Image personally visualized and interpreted and Report Reviewed by me
Medical Tests (Nuc Med, Echo etc): Image personally visualized and interpreted and Report Reviewed by me
Labs: Labs Reviewed by me
Old Records: Reviewed
--- NOTE | 2024-10-12 12:35 | W.DCSUMMARY ---
Discharge Summary
Discharge Data
Date of Admission: 10/09/24
Date of Discharge: 10/12/24
-
Pending Results: No
Hospital Course
Hospital course
59-year-old with a history of recurrent episodes of abdominal pain and last episode 2022 diagnosed with terminal ileitis at that time, presents to the emergency department today with 1 day history of abdominal pain without nausea vomiting and
without diarrhea. CT scan shows terminal ileitis with ileocecal axis. CBC is unremarkable stop electrolytes are stable. Patient is hemodynamically stable and afebrile. Suspect the inflammatory changes are likely secondary to inflammatory disease
but cannot rule out on acute infectious ileitis at this time.
Terminal ileitis, recurrent episodes.
Fatty liver by imaging
Essential hypertension
Colonoscopy shows:
- The examined portion of the ileum was normal with intact villi and healthy appearing ileal mucosa without any endoscopic signs of inflammation. Biopsied.
Multiple polyps resected, moderate diverticulosis and nonbleeding internal hemorrhoids otherwise normal exam
Plan to discharge if tolerates diet.
During hospitalization patient was treated from the [facility]
Terminal ileitis recurrent episode last [address]
There is extensive wall thickening stranding along the terminal ileum extending slightly into the cecum consistent with terminal ileitis/ileocecitis. There is likely related to known Crohn's disease.
The liver appears borderline diffusely hypoattenuating suggestive of an element of fatty infiltration, unchanged from prior.
Nontoxic-appearing
Afebrile hemodynamically stable with no evidence of systemic infection or sepsis.
Abdominal examination with mild tenderness mostly in lower quadrants.
Similar presentation in 2022 treated empirically with antibiotics.
Follow-up MRE with complete resolution and no evidence of chronic findings
Patient is to follow-up with colonoscopy in 2025
Differential diagnosis terminal ileitis, less likely infectious given presentation with absence of fever, normal white count, no diarrhea, no recent antibiotics or other exposure, versus inflammatory bowel disease with consideration of Crohn's
versus NSAID related.
At this point no clear evidence of IBD with very mildly elevated CRP, no reports of hematochezia or anemia.
Stool calprotectin pending.
Empiric antibiotics Unasyn
Clear liquid diet.
10/11
Patient may required diagnostic colonoscopy while inpatient if no response to conservative management.
10/12
Colonoscopy shows:
- The examined portion of the ileum was normal with intact villi and healthy appearing ileal mucosa without any endoscopic signs of inflammation. Biopsied.
Multiple polyps resected, moderate diverticulosis and nonbleeding internal hemorrhoids otherwise normal exam
Plan to discharge if tolerates diet.
Essential hypertension.
Continue lisinopril
Hold HCTZ for now
CODE STATUS: Full code
DVT prophylaxis: Lovenox
Diet: Clear liquid
Total time spent on today's encounter was 40 minutes which included time spent in counseling the patient/family regarding diagnosis and treatment plan as listed above, goals of care, and symptom management. Case was discussed with nursing staff,
specialists, and care coordinators/case management. All labs and imaging personally reviewed by me. Remainder the time spent in detailed review of previous records, lab data, imaging, and other medical provider documentation.
Anticipated Discharge: Today
Discharge Plan
-
Patient Disposition: Home (Routine Discharge)
Discharge Diagnosis/Procedures: Terminal ileitis.
Colonic polyp.
Hypertension
Condition: Good
Diet: As tolerated and Low Residue
Activity: As tolerated
Referrals:
Flip Thomas DO [Family Provider] -
Filemon Lagunas DO [Active] - in two to four weeks
Additional Discharge Medication Instructions: Strict avoidance of all NSAIDs
Prescriptions:
New
amoxicillin-pot clavulanate 875-125 mg tablet
1 tab PO BID Qty: 14 0RF
Continued
lisinopril-hydrochlorothiazide 20-12.5 mg tablet
1 tab PO DAILY
Discontinued
ibuprofen 200 mg Tablet
400 mg PO Q8HPRN PRN (Reason: mild pain)
Discharge Orders:
Discharge Patient (As Directed); Ordered 10/12/24
Ordered By: Meli Alejo
Discharge Date and Time
Print Language: KAZAKH
[2024-10-12 13:12] VITALS: BP 124/76
--- NOTE | 2024-10-12 14:40 | CM ---
Chart reviewed home today no needs.
Plan; Home no needs.
== END 2024-10-12 13:52 | disposition home or self-care (01) | DRG 386 ==
LOC: 2 NORTH 22:10
PROVIDERS: Student in an Organized Health Care Education/Training Program; ADMITTING PHYSICIAN Internal Medicine; ATTENDING PHYSICIAN General Practice; CONSULT PHYSICIAN Internal Medicine Gastroenterology; EMERGENCY PHYSICIAN Emergency Medicine; FAMILY PHYSICIAN Family Medicine
PROC: 0DBL8ZZ Excision of Transverse Colon, Via Natural or Artificial Opening Endoscopic (ICD-10-PCS; 2024-10-12)
PROC: 0DBM8ZZ Excision of Descending Colon, Via Natural or Artificial Opening Endoscopic (ICD-10-PCS; 2024-10-12)
PROC: 0DBL8ZX Excision of Transverse Colon, Via Natural or Artificial Opening Endoscopic, Diagnostic (ICD-10-PCS; 2024-10-12)
PROC: 0DBK8ZX Excision of Ascending Colon, Via Natural or Artificial Opening Endoscopic, Diagnostic (ICD-10-PCS; 2024-10-12)
PROC: 0DBP8ZZ Excision of Rectum, Via Natural or Artificial Opening Endoscopic (ICD-10-PCS; 2024-10-12)
PROC: 0DBH8ZX Excision of Cecum, Via Natural or Artificial Opening Endoscopic, Diagnostic (ICD-10-PCS; 2024-10-12)
PROC: 0DBB8ZX Excision of Ileum, Via Natural or Artificial Opening Endoscopic, Diagnostic (ICD-10-PCS; 2024-10-12)
PROC: 0DBM8ZX Excision of Descending Colon, Via Natural or Artificial Opening Endoscopic, Diagnostic (ICD-10-PCS; 2024-10-12)
PROC: 0DBN8ZX Excision of Sigmoid Colon, Via Natural or Artificial Opening Endoscopic, Diagnostic (ICD-10-PCS; 2024-10-12)
PROC: 0DBP8ZX Excision of Rectum, Via Natural or Artificial Opening Endoscopic, Diagnostic (ICD-10-PCS; 2024-10-12)
DX: K50.00 Crohn's disease of small intestine without complications (principal); K57.32 Diverticulitis of large intestine without perforation or abscess without bleeding; E78.00 Pure hypercholesterolemia, unspecified; I10 Essential (primary) hypertension; K21.9 Gastro-esophageal reflux disease without esophagitis; K63.5 Polyp of colon; R21 Rash and other nonspecific skin eruption; K76.0 Fatty (change of) liver, not elsewhere classified; K64.0 First degree hemorrhoids; R79.82 Elevated C-reactive protein (CRP); D12.3 Benign neoplasm of transverse colon; D12.4 Benign neoplasm of descending colon; K62.1 Rectal polyp; Z82.49 Family history of ischemic heart disease and other diseases of the circulatory system; Z87.19 Personal history of other diseases of the digestive system; Z80.3 Family history of malignant neoplasm of breast; Z80.0 Family history of malignant neoplasm of digestive organs; Z88.2 Allergy status to sulfonamides; Z88.1 Allergy status to other antibiotic agents
CPT/HCPCS: 88305; 74177; 80048; 80053; 81003; 81015; 83690; 83993; 85025; 85027; 85652; 86140; 87045; 87046; 87070; 87086; 87328; 87329; 87427; 96365; 96375; 96376; 99285; Q9967

== ENCOUNTER → 2025-02-06 12:06 | Outpatient (REF) | payer OTHER, SELFPAY | LOC: MRI 3T 12:06 | PROVIDERS: ATTENDING PHYSICIAN Nurse Practitioner; FAMILY PHYSICIAN Family Medicine | DX: K50.019 Crohn's disease of small intestine with unspecified complications (principal) | CPT/HCPCS: 72197; 74183; A9575 ==